=== PATIENT | female | born 1950 | race African-American/Black ===

== ENCOUNTER 2018-01-05 08:52 | Outpatient (CLI) | payer OTHER ==
--- NOTE | 2018-01-05 11:16 | CONSULTATION REPORT ---
CONSULTING PHYSICIAN: Lino Sunshine MD HISTORY OF PRESENT ILLNESS: Glenn Jaeger is a self-referred new patient here for an evaluation of neck and back pain. It has been present for quite a few years. It is constant but worse with activities, such as prolonged standing or walking. This 67-year-old black woman also had a blood test done and she was found to have a CCP antibody of 176.8. She has had no involvement of her hands, wrists, feet, knees, elbows , or shoulders. REVIEW OF SYSTEMS: On review of systems, she has put on 4 pounds. She has some fatigue. She has some dry eyes, dry nose and mouth and some hoarseness. She has occasional chest pain. The last episode brought her to the emergency room where she had a chest x-ray more than a week ago. Apparently, further labs were done. She does have high blood pressure, chronic shortness of breath, and a nonproductive cough. She has problems with constipation, heartburn, and vaginal dryness. She gets occasional rashes. The last was on her arm. They have resolved. PAST MEDICAL HISTORY: 1. Breast cancer. 2. Atrial fibrillation. 3. "Erythema nodosum." 4. Hypertension. 5. Glaucoma. 6. Hyperlipidemia. 7. Hypertension. 8. Hypothyroidism. 9. Atrial fibrillation. 10. Trigger thumb. PAST SURGICAL HISTORY: 1. Lumpectomy, right breast, for breast cancer. 2. Bowel surgery for bowel obstruction in 1974. 3. Hernia repair in 1979. MEDICATIONS: 1. Flecainide 100 mg twice a day. 2. Hydrochlorothiazide 12.5 mg daily. 3. Losartan 100 mg 1 daily. 3. Coumadin. ALLERGIES: 1. Altace gives her a cough. 2. Macrobid gives her hives. 3. Cefprozil gave her Staphylococcal enteritis. SOCIAL HISTORY: She does not smoke or drink. FAMILY HISTORY: Unknown. PHYSICAL EXAMINATION: GENERAL: She looks well and comfortable. She is in no distress. No difficulty in up or down on the examining table. VITAL SIGNS: Height: 5 feet 6 inches. Weight: 184 pounds. T: 97.7, R: 20 , heart rate 78, BP: 157/86. HEENT: Sclerae are anicteric. Conjunctivae are pink. No stomatitis or glossitis. NECK: Full range of motion. No tenderness. LUNGS: Clear with no crackles or wheezing. HEART: Regular rate and rhythm. ABDOMEN: Soft and nontender. LUMBAR SPINE EXAM: Some decreased flexion. No spinal or paraspinal tenderness. Negative straight leg raising test. HIPS: Hips have some decreased internal rotation. VASCULAR: No edema or cyanosis. SKIN: Skin exam from head to toe and nails are unremarkable. PERIPHERAL JOINTS: DIPs, PIPs, MCPs, wrists, elbows, shoulders, hips, knees, ankles, and feet were unremarkable except for mild tenderness at MCP #3 bilaterally. IMPRESSION: 1. Neck pain. 2. Back pain. 3. Raised antibody titer of unknown significance. PLAN: We will proceed further for an evaluation of possible rheumatoid arthritis. I have sent the patient for AVISE testing, as well as a sedimentation rate and CRP. I am going to see her back next month, and I have asked her to bring all the x-rays that she has had in the past year, including neck, back, chest, or any hand or foot films that she had done, as well as her last set of labs, i.e. CBC and CMP. Thank you very much. Best regards, MIRACLE
== END 2018-01-05 12:20 ==
LOC: RHEU 08:52
PROVIDERS: ATTEND Internal Medicine
DX: M54.2 Cervicalgia (principal); M54.9 Dorsalgia, unspecified; R76.0 Raised antibody titer
CPT/HCPCS: 99214; G0463

== ENCOUNTER 2018-01-08 09:16 | Outpatient (CLI) | payer OTHER | END 2018-01-08 09:17 | LOC: LAB 09:16 | PROVIDERS: ATTEND Internal Medicine | DX: M13.0 Polyarthritis, unspecified (principal) | CPT/HCPCS: 36415; 85651; 86140 ==

== ENCOUNTER 2018-03-09 11:02 | Outpatient (CLI) | payer OTHER ==
--- NOTE | 2018-03-09 16:34 | OP Clinic Progress Note ---
Dear Dr. Carlos Martin: REASON FOR VISIT: I had the pleasure of seeing Glenn Jaeger on 2 occasions, January 05, 2018, and on March 03, 2018. She has a chief complaint of neck and back pain which has been present for many years and worse with activities, including standing, walking, and turning her head. She originally presented with a positive CCP antibody of 176.8. I repeated a full rheumatological profile on the patient and again her CCP antibody was positive. I also asked her to bring in her imaging studies of her neck and thoracic spine. Otherwise, on review of systems, no fevers, chills, sweats, chest pain, shortness of breath, cough, wheezing, nausea, vomiting, or diarrhea. Her blood pressure has been running a little high. She has had no chest pain or leg swelling. PAST MEDICAL HISTORY: 1. Breast cancer. 2. Atrial fibrillation. 3. "Erythema nodosum." 4. Hypertension. 5. Glaucoma. 6. Hyperlipidemia. 7. Hypertension. 8. Hypothyroidism. 9. Trigger thumb. PAST SURGICAL HISTORY: 1. Breast lumpectomy. 2. Bowel surgery for bowel obstruction. 3. Hernia repair. PRESENT MEDICATIONS: 1. Flecainide 100 mg twice a day. 2. Hydrochlorothiazide 12.5 mg daily. 3. Irbesartan 300 mg daily. 4. Tizanidine 2 mg 3 times a day. ALLERGIES: 1. Altace. 2. Macrobid. 3. Cefprozil. PHYSICAL EXAMINATION: GENERAL: She is in no distress. VITAL SIGNS: Height: 5 feet 6 inches. Weight: 183 pounds. T: 97.8, R: 20, Heart rate 70, BP: 176/91. HEENT: Grossly unremarkable. LUNGS: Clear. HEART: Regular rate and rhythm. ABDOMEN: Soft. VASCULAR: No edema or cyanosis. JOINTS: The DIPs, PIPs, MCPs, wrists, elbows, shoulders, hips, knees, ankles, and feet show no synovitis or rheumatoid deformities. BACK: Examination of her back, she has a decrease in lumbar flexion and extension. She has good cervical flexion and extension but markedly decreased rotation and lateral flexion. LABORATORY: Again, her AVISE testing revealed again a positive CCP antibody and rheumatoid factors were negative. Sedimentation rate was 13 and CRP was 0.09. RADIOLOGY: I personally reviewed the x-rays of her neck performed February 02 at [facility], as well as her thoracic spine film. I disagree with the radiology reading. She does not have ankylosing spondylitis. Her findings are classical for diffuse idiopathic skeletal hyperostosis or Forestier's disease. ASSESSMENT AND PLAN: 1. Diffuse idiopathic skeletal hyperostosis. I recommend physical therapy. Work on posture. Careful use of nonsteroidal's and muscle relaxants. 2. Positive CCP antibody without evidence of active rheumatoid arthritis. Patients with positive CCP antibodies can later develop rheumatoid arthritis. I informed the patient that if she should develop symmetrical swelling of the hands, wrists, and feet or any other warm swollen tender joints, to return immediately. Thank you very much for the opportunity to take care of your patients. Best regards, cc: Dr. Carlos RAUSCH
== END 2018-03-09 11:03 ==
LOC: RHEU 11:02
PROVIDERS: ATTEND Internal Medicine
DX: M48.10 Ankylosing hyperostosis [Forestier], site unspecified (principal); M54.9 Dorsalgia, unspecified; M54.2 Cervicalgia
CPT/HCPCS: 99214; G0463